=== PATIENT | female | born 1970 | race Caucasian/White ===

== ENCOUNTER 2022-12-19 07:54 | Outpatient (CLI) | payer OTHER, SELFPAY ==
[2022-12-19 12:48] LABS: Chloride* 102 mmol/L (96-114); Sodium* 140 mmol/L (135-149)
[2022-12-19 12:50] LABS: Cholesterol* 157 mg/dL (90-199)
[2022-12-19 12:51] LABS: Blood Urea Nitrogen* 16 mg/dL (7-30); Carbon Dioxide* 33 mmol/L (20-32); Creatinine* 0.7 mg/dL (0.5-1.5); Estimated Glomerular Filt Rate 105 ml/min; Glucose* 105 mg/dL (60-115); Potassium* 4.3 mmol/L (3.6-5.1); Triglycerides* 108 mg/dL (40-149)
[2022-12-19 12:52] LABS: Calcium* 9.2 mg/dL (8.4-10.6); HDL Cholesterol* 63 mg/dL (>=50); LDL Cholesterol Calculated 72 mg/dL (<100)
== END 2022-12-19 07:55 | disposition home or self-care (01) ==
LOC: NFLDREF 07:55
PROVIDERS: PCP Internal Medicine; Visit Provider Internal Medicine
DX: E66.01 Morbid (severe) obesity due to excess calories (principal); I10 Essential (primary) hypertension; Z13.6 Encounter for screening for cardiovascular disorders
CPT/HCPCS: 80048; 80061

== ENCOUNTER 2023-02-06 12:39 | Outpatient (CLI) | payer OTHER, SELFPAY ==
--- NOTE | 2023-02-06 13:57 | W.ANESCHARGE ---
Anesthesia Charges Start Date/Time Anesthesia Start Date: 02/06/23 Anesthesia Start Time: 13:40 Stop Date/Time Anesthesia Stop Date: 02/06/23 Anesthesia Stop Time: 14:05
== END 2023-02-06 12:40 | disposition home or self-care (01) ==
LOC: OP CLINIC 12:40
PROVIDERS: PCP Internal Medicine; Visit Provider Surgery
DX: Z12.11 Encounter for screening for malignant neoplasm of colon (principal); K63.5 Polyp of colon; K63.89 Other specified diseases of intestine; K57.30 Diverticulosis of large intestine without perforation or abscess without bleeding; R19.5 Other fecal abnormalities
CPT/HCPCS: 45380; 811; 88305; J2704

== ENCOUNTER 2023-03-25 18:41 | Outpatient (CLI) | payer OTHER, SELFPAY ==
--- NOTE | 2023-03-25 19:00 | CRLHL7_ITS ---
For Patients: As a result of the Cures Act, medical imaging exams and procedure reports are released immediately into your electronic medical record. You may view this report before your referring provider. If you have questions, please contact your health care provider. BILATERAL SCREENING MAMMOGRAM WITH COMPUTER-AIDED DETECTION AND TOMOSYNTHESIS TECHNIQUE: CC and MLO views were obtained. These mammographic images have been obtained using full-field digital technique. These mammographic images were interpreted with the benefit of computer-aided detection. Breast Tomosynthesis was used in this interpretation. COMPARISON FILM: 02/04/22, 12/22/20, 01/28/19. FINDINGS: The breasts are almost entirely fatty IMPRESSION: There is no radiographic evidence for malignancy. ASSESSMENT: BI-RADS Category 1: Negative RECOMMENDATION: Routine screening mammogram in 1 year. A lay language report of this examination will be provided to the patient. Mayank Das M.D. Diagnostic Radiologist [email or web address] FLOR/ector Transcribed: 1:41 p.myra barney/Dictated by: Mayank Das MD @ 03/26/2023 10:42:00 AM (Electronically Signed)
== END 2023-03-25 18:42 | disposition home or self-care (01) ==
LOC: MAMMO 18:42
PROVIDERS: PCP Internal Medicine; Visit Provider Internal Medicine
DX: Z12.31 Encounter for screening mammogram for malignant neoplasm of breast (principal)
CPT/HCPCS: 77063; 77067

== ENCOUNTER 2024-01-08 07:53 | Outpatient (CLI) | payer BC, SELFPAY | END 2024-01-08 07:54 | disposition home or self-care (01) | LOC: NFLDREF 13:37 | PROVIDERS: PCP Internal Medicine; Referring Provider Internal Medicine; Visit Provider Internal Medicine | DX: I10 Essential (primary) hypertension (principal) | CPT/HCPCS: 80048 ==

== ENCOUNTER 2024-04-01 15:21 | Outpatient (CLI) | payer BC, SELFPAY ==
--- NOTE | 2024-04-01 15:40 | MM_ITS ---
Patient: CLEMENT ARAUJO Facility:?[facility] Patient ID:?[id number] Site Patient ID:?[id number] Site :?[id number] Study:?XRay-Breast Bilateral 3D W/CAD-04/01/2024 5:10:22 PM Ordering Physician:MARLENI Final Report: BILATERAL SCREENING MAMMOGRAM WITH COMPUTER-AIDED DETECTION AND TOMOSYNTHESIS TECHNIQUE: CC and MLO views were obtained. These mammographic images have been obtained using full-field digital technique. These mammographic images were interpreted with the benefit of computer-aided detection. Breast Tomosynthesis was used in this interpretation. COMPARISON FILM: 03/25/23, 02/04/22, 12/22/20. FINDINGS: The breasts are almost entirely fatty. IMPRESSION: There is no radiographic evidence for malignancy. ASSESSMENT: BI-RADS Category 1: Negative RECOMMENDATION: Routine screening mammogram in 1 year. A lay language report of this examination will be provided to the patient. Mayank Das M.D. Diagnostic Radiologist [email or web address] DSM/sp R& Transcribed: 2:45 p.m. SP/Dictated by: Mayank Das MD @ 04/06/2024 8:37:00 AM Signed by:?Mayank Das MD @04/06/2024 3:19:33 PM (Electronic Signature)
== END 2024-04-01 15:22 | disposition home or self-care (01) ==
LOC: MAMMO 15:21
PROVIDERS: PCP Internal Medicine; Visit Provider Internal Medicine
DX: Z12.31 Encounter for screening mammogram for malignant neoplasm of breast (principal)
CPT/HCPCS: 77063; 77067

== ENCOUNTER 2025-02-28 08:15 | Outpatient (CLI) | payer BC, SELFPAY | END 2025-02-28 08:16 | disposition home or self-care (01) | LOC: NFLDREF 03-03 20:52 | PROVIDERS: PCP Internal Medicine; Referring Provider Internal Medicine; Visit Provider Internal Medicine | DX: I10 Essential (primary) hypertension (principal); Z13.1 Encounter for screening for diabetes mellitus | CPT/HCPCS: 80048 ==

== ENCOUNTER 2025-03-03 13:08 | Outpatient (CLI) | payer BC, SELFPAY ==
[2025-03-07 13:00] LABS: HPV Source Cervical; HPV, High Risk by TMA Not Detected
== END 2025-03-03 13:09 | disposition home or self-care (01) ==
PROVIDERS: PCP Internal Medicine; Visit Provider Internal Medicine
DX: Z12.4 Encounter for screening for malignant neoplasm of cervix (principal); Z11.51 Encounter for screening for human papillomavirus (HPV)
CPT/HCPCS: 87624; 87625; 88141; 88142

== ENCOUNTER 2025-04-13 08:02 | Outpatient (CLI) | payer BC, SELFPAY ==
--- NOTE | 2025-04-13 08:15 | CRLHL7_ITS ---
For Patients: As a result of the Century Cures Act, medical imaging exams and procedure reports are released immediately into your electronic medical record. You may view this report before your referring provider. If you have questions, please contact your health care provider. INDICATION: BILATERAL SCREENING MAMMOGRAM, ASYMPTOMATIC 55 Y/O FEMALE COMPARISON: 04/01/2024, 03/25/2023, 2021 TECHNIQUE: Digital mammogram in CC and MLO projections including computer-aided detection (CAD) and tomosynthesis. BREAST COMPOSITION: The breasts are almost entirely fatty. FINDINGS: No suspicious findings. ASSESSMENT: BI-RADS 1 Negative RECOMMENDATION: Annual screening mammogram. A lay language report of this examination will be provided to the patient. Dictated by: Mayank Das MD @ 04/13/2025 13:00:55 (Electronically Signed)
== END 2025-04-13 08:03 | disposition home or self-care (01) ==
PROVIDERS: PCP Internal Medicine; Visit Provider Internal Medicine
DX: Z12.31 Encounter for screening mammogram for malignant neoplasm of breast (principal)
CPT/HCPCS: 77063; 77067